=== PATIENT | male | born 1955 | race Caucasian/White ===

== ENCOUNTER 2021-01-07 16:43 | Observation (INO) | payer MEDICAID, SELFPAY ==
[2021-01-07] VITALS (7 sets, daily range): BP systolic 95–142; BP diastolic 61–95; PULSE 93–118; RESP 19–29; TEMP 38.1; O2SAT 88–96; BMI 33.0
--- NOTE | 2021-01-07 17:25 | XRR_ITS ---
PROCEDURE INFORMATION: Exam: XR Chest Exam date and time: 01/07/2021 5:33 PM Age: 65 years old Clinical indication: Cough and dyspnea; Additional info: Dyspnea/cough TECHNIQUE: Imaging protocol: XR of the chest Views: 1 view. COMPARISON: CR Chest 1 [place] [id number] 06/01/2017 5:04 PM FINDINGS: Lungs: Emphysematous changes of the lungs. No focal airspace consolidation apparent. Pleural spaces: Unremarkable. No pleural effusion. No pneumothorax. Heart/Mediastinum: Unremarkable. No cardiomegaly. Vasculature: Mild atherosclerosis of thoracic aorta. Bones/joints: Unremarkable. XR/XR chest 1V portable [id number] IMPRESSION: No convincing evidence of focal pneumonia in the lungs. Background emphysema noted.
[2021-01-07 18:09] LABS: Basophils % 0.4 %; Eosinophils # 0.4 10^3/uL (0.0-0.8); Eosinophils % 6.4 %; Hematocrit 37.6 % (42.0-52.0); Lymphocytes % 15.3 %; Mean Corpuscular HGB Conc 31.9 g/dL (30.0-36.0); Mean Corpuscular Hemoglobin 29.9 pg (28.0-34.0); Mean Corpuscular Volume 93.8 fL (80-94); Mean Platelet Volume 10.1 fL (7.4-10.4); Monocytes # 0.5 10^3/uL (0.2-0.9); Monocytes % 7.6 %; Nucleated Red Blood Cells % 0 %; Platelet Count 204 10^3/cmm (130-400); Red Blood Count 4.01 10^6/uL (4.1-5.3); Red Cell Distribution Width 12.6 % (12.1-15.1); White Blood Count 6.7 10^3/uL (4.0-10.0)
[2021-01-07 18:21] LABS: Add Urine Microscopic? NO
[2021-01-07 18:35] LABS: Lactic Sepsis W/Reflex 2.6 mmol/L (0.5-2.2)
[2021-01-07 18:35] LABS: Glucose Urine UA 4+ (Normal); Protein Urine Neg (Negative); Urine Appearance Clear (CLEAR); Urine Color Yellow (Yellow); pH Urine 5 (5-7)
[2021-01-07 18:36] LABS: Bilirubin Urine Neg (Negative); Blood Urine Neg (Negative); Ketones Urine Negative (Negative); Leukocyte Esterase Urine Negative (Negative); Nitrate Urine Negative (Negative); Urobilinogen Urine Norm (Negative)
[2021-01-07 18:37] LABS: Alanine Aminotransferase 21 U/L (0-41); Albumin Level 3.8 g/dL (3.5-5.2); Alkaline Phosphatase 72 IU/L (40-130); Anion Gap 12.8 (5-19); Aspartate Amino Transferase 21 U/L (0-40); Blood Urea Nitrogen 12 mg/dL (8-23); Calcium 8.5 mg/dL (8.5-10.5); Carbon Dioxide 31 mmol/L (22-29); Chloride 95 mmol/L (98-107); Globulin 2.9 g/dL (1.3-4.6); Glomerular Filtration Rate 113.9 mL/min (90-130); Glucose 265 mg/dL (65-115); Osmolality Calculated 289 mOsm/kg (285-295); Potassium 3.8 mmol/L (3.5-5.1); Sodium 135 mmol/L (136-145); Total Bilirubin 0.2 mg/dL (0.15-1.2); Total Protein 6.7 g/dL (6.6-8.7)
[2021-01-07 18:45] LABS: SARS Covid-2 Antigen Negative (Negative)
--- NOTE | 2021-01-07 18:47 | ECG_ITS ---
[facility] Test Date: 2021-01-07 Pat Name: Jason Asher Department: Room: Gender: Male Certified Income Tax Preparer: : 1955 Requested By: Messi Galindo Order Number: [id number] Gomez MD: Salomon Franklin M.D. Measurements Intervals [place] Rate: 101 P: 65 [place]: 160 QRS: -67 QRSD: 96 T: 59 QT: 327 QTc: 426 Interpretive Statements SINUS TACHYCARDIA PATTERN CONSISTENT WITH PULMONARY DISEASE LEFT ANTERIOR FASCICULAR BLOCK [QRS AXIS <= -45, QR IN I, RS IN II] Compared to ECG 06/01/2017 16:47:22 No significant changes Electronically Signed On 01-09-2021 19:03:34 HIMS CODER by Salomon Franklin M.D. [email or web address]
--- NOTE | 2021-01-07 19:18 | CTR_ITS ---
PROCEDURE INFORMATION: Exam: CT Angiography Chest With Contrast Exam date and time: 01/07/2021 8:00 PM Age: 65 years old Clinical indication: Shortness of breath; Patient HX: C/O SOB w tachycardia; Additional info: SOB, tachycardia TECHNIQUE: Imaging protocol: Computed tomographic angiography of the chest with contrast. 3D rendering (Not supervised by radiologist): MIP and/or 3D reconstructed images were created by the technologist. Radiation optimization: All CT scans at this facility use at least one of these dose optimization techniques: automated exposure control; mA and/or kV adjustment per patient size (includes targeted exams where dose is matched to clinical indication); or iterative reconstruction. Contrast material: VISI 320; Contrast volume: 85 ml; Contrast route: INTRAVENOUS (IV); COMPARISON: CR (CHEST, ) 01/07/2021 5:30 PM RADIATION DOSE METRICS: Total DLP (mGy-cm): 606.87 FINDINGS: Pulmonary arteries: Normal. No pulmonary emboli. Aorta: Unremarkable. No aortic aneurysm. No aortic dissection. Lungs: Severe emphysema. Small patchy ground-glass foci in the posterior right lower lobe are nonspecific. Small region of patchy irregular ground-glass attenuation in the right middle lobe is nonspecific. No focal endobronchial lesion identified. Pleural spaces: Unremarkable. No pneumothorax. No pleural effusion. Heart: Unremarkable. No cardiomegaly. No pericardial effusion. Mediastinal space: Circumferential wall thickening of the mid through distal thoracic esophagus. No soft tissue inflammation in the mediastinum. Lymph nodes: Unremarkable. No enlarged lymph nodes. Liver: Liver surface appears diffusely nodular. Speckled calcifications in the liver parenchyma noted in the anterior left lobe and also the right hepatic dome area of uncertain significance. Gallbladder and bile ducts: Cholecystectomy. Bones/joints: Unremarkable. No acute fracture. Soft tissues: Unremarkable. CT/CT angio chest PE protcl [id number] IMPRESSION: 1. Negative for pulmonary embolism. 2. Features of advanced emphysema. 3. Scattered small regions of patchy ground-glass attenuation in the lungs is nonspecific. May reflect mild pneumonitis changes. Radiation Dose CTDIVOL = (mGy): DLP = 606.87 (mGy-cm)
[2021-01-07] MEDS: dexamethasone 4 mg/mL INJ 10 MG IVP (19:22)
--- NOTE | 2021-01-07 19:28 | PC.NURSE ---
EKG taken and given to ED physician
[2021-01-07] MEDS: albuterol 8 gm MDI 4 PUFF INHALATION (19:46)
[2021-01-07 19:48] LABS: NT Pro B Type Natriuretic Pept 16 pg/mL (0-125)
[2021-01-07 19:51] LABS: ABG PCO2 54.3 mmHg (35-45); Arterial Blood Gas Hematocrit 39.1 % (42-52); Base Excess ABG 7.2 mmol/L (-2.0-2.0); Blood Gas Allen Test Pos; Blood Gas Sample Site Radial, left; Blood Gas Sample Type Arterial; HCO3 ABG 33.6 mmol/L (22-26); Oxygen Device ROOM AIR; PO2 ABG 50.1 mmHg (80.0-100.0)
[2021-01-07 19:53] LABS: Reflex Lactate Order REFLEX LACTIC ORDERD
[2021-01-07] MEDS: diphenhydrAMINE 50 mg/mL SDV 1mL IVP (20:16)
[2021-01-07] MEDS: hydrocortisone 100 mg/2 mL SDV IVP (20:18)
[2021-01-07] MEDS: iodixanol 320 mg/mL 100mL Btl IV (20:43)
[2021-01-07 20:45] LABS: Lactic Acid level (Lactate) 2.1 mmol/L (0.5-2.2)
[2021-01-07] MEDS: azithromycin 500 MG in sodium chloride 0.9% 250 ML 250 MG IV (22:51)
--- NOTE | 2021-01-07 22:59 | P.HP_ITS ---
Providers/Chief Complaint Primary Care Provider: Laurence Elizabeth Chief Complaint: COVID SYMPTOMS, LIVER ISSUES History of Present Illness Jason Asher JR is a 65 year old male who presented today with chief complaint of not feeling well. Patient is stating that he has chronic cough and diarrhea, lately he has been noticing worsening of his symptoms is getting more lethargic and tired. Because of these concerns he decided to come to the hospital for further evaluation. He also noticed temperature of 101 at home. His is n ot sick. He tries to limit his traveling and only goes out for grocery shopping. No chest pain, orthopnea, PND, abdominal pain, headache, neck pain, dysuria. Diagnostics in the ER revealed acute hypoxia he was saturating 85% on room air, at the time my evaluation he was doing fine on 2 L nasal cannula, ABG revealed hypoxia with chronic hypercapnia compensated, lactic 2.6 no active signs of seps is CTA rule out PE showed groundglass opacities however Covid antigen negative, will request PCR Medications/Allergies Home Medications Medication Instructions Recorded Confirmed Last Taken Type acetaminophen [Tylenol] 325 - 650 mg PO DAILY PRN 01/07/21 01/07/21 Unknown History albuterol sulfate 2 puff INHALATION Q6H PRN 01/07/21 01/07/21 Unknown History clonazepam [Klonopin] 1 mg PO DAILY@0800 01/07/21 01/07/21 01/07/21 History levothyroxine 100 mcg PO DAILY@0500 01/07/21 01/07/21 01/07/21 History loratadine [Claritin] 10 mg PO DAILY PRN 01/07/21 01/07/21 Unknown History metoprolol tartrate 50 mg PO BID@0500,1700 01/07/21 01/07/21 01/07/21 History ropinirole 2 mg PO DAILY@1800 01/07/21 01/07/21 01/06/21 History venlafaxine [Effexor] 75 mg PO DAILY@2000 01/07/21 01/07/21 01/06/21 History warfarin [Coumadin] 4 mg PO DAILY@1330 01/07/21 01/07/21 01/07/21 History Allergies Allergy/AdvReac Type Severity Reaction Status Date / Time Iodine and Iodide Containing Allergy TATYANA-Swell Verified 01/07/21 17:00 Produc Lip/Tongue/Throat shellfish derived Allergy ALGY-Swell Verified 01/07/21 17:00 Lip/Tongue/Throat PFSH Acute PFSH: Medical History (Updated 01/07/21 @ 23:03 by Shelby Henry MD) Deficient knowledge of leg surgery Former smoker Hepatitis C Hypertension Hypothyroidism Status post left heart catheterization Surgical History (Updated 01/07/21 @ 23:02 by Shelby Henry MD) History of colonoscopy Hx of cholecystectomy Family History (Updated 01/07/21 @ 23:02 by Shelby Henry MD) Other Family history non-contributory Vitals/I&O/Wt Last Vital Signs Temp 100.6 F H 01/07/21 16:54 Pulse 93 01/07/21 22:53 Resp 19 H 01/07/21 22:53 BP 107/69 01/07/21 22:53 Pulse Ox 96 01/07/21 22:53 Weight last 48 hrs Weight 92.986 kg Physical Exam Narrative: EXAM NARRATIVE: Middle-age male currently saturating well on 2 L nasal cannula no active chest pain, appears more than stated age Does not look fluid overloaded or dehydrated No acute respite distress bilateral breath sounds with rhonchi crackles at the bases S1, S2 no murmur appreciated, Distant heart sounds Abdomen soft nontender Lower extremity venous stasis dermatitis Appropriate mood and affect No neurological deficit No active joint swelling or signs of cellulitis Data : 01/07/21 18:00 01/07/21 18:00 A&P Assessment and plan (1) Sinus tachycardia: Patient endorsing chronic diarrhea, he does not take any Metformin We will give him normal saline maintenance fluid to see if that would help his sinus tachycardia no active chest pain, no signs of PE on CTA, he is not septic Status: Acute (2) Acute respiratory failure with hypoxia: Acute hypoxic respiratory failure Former smoker, PE ruled out, COVID-19 negative, will request PCR D-dimer, LDH and ferritin to be requested as well We will give him a azithromycin for bronchitis, x-ray showing emphysematous changes, not an active smoker DuoNeb every 4 as needed Would start him on Decadron Status: Acute (3) Diarrhea: Chronic diarrhea, no acute exacerbation Status: Acute Additional A&P Information Cardiac diet Full code DVT prophylaxis patient takes Coumadin 4 mg daily patient is stating that he had a provoked DVT episode after right leg fracture 2002, since then he has been on Coumadin, will check INR, kindly reevaluate I do believe he will not need long-term anticoagulation Attestations Medical Necessity Statement*: Anticipating discharge in less than 48 hours overnight monitoring because of new onset hypoxia and sinus tachycardia Time Spent in Patient Care: 40mins Coding Level of Care Code Acute Plug Wirer for Aura Vasquez Diagnoses Sinus tachycardia R00.0 Acute respiratory failure with hypoxia J96.01 Diarrhea R19.7
[2021-01-08] VITALS (10 sets, daily range): BP systolic 99–127; BP diastolic 59–77; PULSE 72–119; RESP 16–20; TEMP 36.4–36.9; O2SAT 90–96
[2021-01-08 00:06] LABS: INR 1.14 (0.8-1.2)
[2021-01-08] MEDS: sodium chloride 0.9% 1,000 ML 999 ML IV (01:27)
--- NOTE | 2021-01-08 01:30 | ED_ITS ---
HPI - SOB/Dyspnea General: Chief Complaint: Shortness of Breath/Dyspnea Stated Complaint: RUQ pain, SOB, fever Time Seen by Provider: 01/07/21 17:17 History of Present Illness: HPI Narrative: 65-year-old male presents with a fever at home, cough, and shortness of breath. He has noticed the symptoms the last 3 to 4 days. The fever just came on today. He has had trouble breathing, and feels like he cannot get stuff coughed up out of his chest. He does not use oxygen at home. Associated symptoms: Reports abdominal pain, fever(s), nausea and orthopnea; Deny chest pain, dizziness, palpitations or vomiting Review of Systems Const: Reports: fever(s) and chills Eyes: Denies: change in vision ENMT: Denies: odynophagia, swelling of lips/tongue or sinus pain Card: Reports: dyspnea on exertion and orthopnea; Denies: chest pain, palpitations or irregular heart rhythm Resp: Reports: dyspnea, productive cough, non-productive cough and wheezing GI: Reports: abdominal pain and nausea; Denies: vomiting : Denies: difficulty urinating or hematuria Musc: Denies: neck pain or joint warmth Skin/Breast: Denies: rash or erythema Neuro: Denies: headache(s), dizziness or vertigo Psych: Denies: anxiety PFSH ED PFSH: Medical History (Updated 01/07/21 @ 23:03 by Shelby Henry MD) Deficient knowledge of leg surgery Former smoker Hepatitis C Hypertension Hypothyroidism Status post left heart catheterization Surgical History (Updated 01/07/21 @ 23:02 by Shelby Henry MD) History of colonoscopy Hx of cholecystectomy Family History (Updated 01/07/21 @ 23:02 by Shelby Henry MD) Other Family history non-contributory Physical Exam Const: GENERAL APPEARANCE: cooperative and ill appearing ORIENTATION/CONSCIOUSNESS: Yes oriented to person, Yes oriented to place and Yes oriented to time HENMT: COMMON NORMALS: normocephalic and Normal external nose present HEAD & SCALP: normocephalic FACE & SINUS: normal facial exam NOSE: Normal external nose present and No nasal discharge present Eye: COMMON NORMALS: Equal, round and reactive pupils present, EOMs intact bilaterally and conjunctivae normal EYELID: eyelids normal CONJUNCTIVA: Yes conjunctivae normal PUPIL: Yes Equal, round and reactive pupils present Neck/C-Spine: GENERAL: No tracheal deviation Chest: COMMONS NORMALS: normal inspection of the chest CHEST: No tenderness Resp: COMMON NORMALS: clear to auscultation bilaterally EFFORT & INSPECTION: Yes tachypneic, No retractions, Yes uses accessory muscles and No tracheal deviation AUSCULTATION: clear to auscultation bilaterally, no rhonchi, no wheezes and diminished lung sounds Cardio: COMMON NORMALS: regular rate and regular rhythm RATE: regular rate RHYTHM: regular rhythm HEART SOUNDS: no murmurs PERIPHERAL PULSES: radial pulses present GI: INSPECTION: No abdominal distension AUSCULTATION: No Hyperactive bowel sounds present and No Hypoactive bowel sounds present PALPATION: No Guarding due to palpation present (GI) and No Rigid due to palpation PERCUSSION: no dullness to percussion and no tympanic to percussion Neuro: SENSORIUM/ORIENTATION: Yes oriented to person, Yes oriented to place and Yes oriented to time Psych: COMMON NORMALS: mental status grossly normal Skin: COMMON NORMALS: no rashes or lesions noted GENERAL SKIN EXAM: no rashes or lesions noted Course Vital Signs: Vital signs: Vital Signs Temperature 98.5 F 01/08/21 00:26 Pulse Rate 90 01/08/21 00:26 Respiratory Rate 18 01/08/21 00:26 Blood Pressure 99/59 01/08/21 00:26 Pulse Oximetry 95 01/08/21 00:26 MDM - SOB/Dyspnea MDM Narrative: Medical decision making narrative: 65-year-old gentleman who was hypoxic and febrile. His x-rays showed appeared to me the beginning of bilateral infiltrates. CTA of the chest shows groundglass infiltrates diffusely. His white blood cell count is 6.7. Hemoglobin 12. Lactic acid is 2.1. BNP is negative. His rapid Covid is negative. He will be tested by PCR given his x-ray findings. He has received dexamethasone and oxygen. He also received Zithromax. Lab Data: Labs: Lab Results 01/07/21 01/07/21 01/07/21 Range/Units 16:15 18:00 18:00 WBC 6.7 (4.0-10.0) 10^3/ uL RBC 4.01 L (4.1-5.3) 10^6/u L Hgb 12.0 (11.7-16.6) g/dL Hct 37.6 L (42.0-52.0) % MCV 93.8 (80-94) fL MCH 29.9 (28.0-34.0) pg MCHC 31.9 (30.0-36.0) g/dL RDW 12.6 (12.1-15.1) % Plt Count 204 (130-400) 10^3/c mm MPV 10.1 (7.4-10.4) fL Neut % (Auto) 70.0 % Lymph % (Auto) 15.3 % [place] % (Auto) 7.6 % Eos % (Auto) 6.4 % Baso % (Auto) 0.4 % Neut # (Auto) 4.70 (1.8-7.7) 10^3/u L Lymph # (Auto) 1.0 (0.8-4.8) 10^3/u L [place] # (Auto) 0.5 (0.2-0.9) 10^3/u L Eos # (Auto) 0.4 (0.0-0.8) 10^3/u L Baso # (Auto) 0.0 (0.0-0.1) 10^3/u L Nucleated RBC % (a uto) 0 % Nucleated RBCs # 0.0 /100WBC PT (12.1-14.9) SECO NDS INR (0.8-1.2) Specimen Type Sample Site ABG pH (7.35-7.45) ABG pCO2 (35-45) mmHg ABG pO2 (80.0-100.0) mmH g ABG HCO3 (22-26) mmol/L ABG Base Excess (-2.0-2.0) mmol/ L Luis Test Hematocrit (42-52) % O2 Delivery Device Public Welfare Director ID Sodium 135 L (136-145) mmol/L Potassium 3.8 (3.5-5.1) mmol/L Chloride 95 L (98-107) mmol/L Carbon Dioxide 31 H (22-29) mmol/L Anion Gap 12.8 (5-19) BUN 12 (8-23) mg/dL Creatinine 0.7 (0.7-1.2) mg/dL GFR Calculation 113.9 (90-130) mL/min Glucose 265 H (65-115) mg/dL Calculated Osmolal ity 289 (285-295) mOsm/k g Lactic Acid (0.5-2.2) mmol/L Lactic Acid (Sepsi s) (0.5-2.2) mmol/L Calcium 8.5 (8.5-10.5) mg/dL Total Bilirubin 0.2 (0.15-1.2) mg/dL AST 21 (0-40) U/L ALT 21 (0-41) U/L Alkaline Phosphata se 72 (40-130) IU/L NT-Pro-B Natriuret Pep (0-125) pg/mL Total Protein 6.7 (6.6-8.7) g/dL Albumin 3.8 (3.5-5.2) g/dL Globulin 2.9 (1.3-4.6) g/dL Procalcitonin 0.10 (0-0.5) ng/mL Urine Color (Yellow) Urine Appearance (CLEAR) Urine pH (5-7) Ur Specific Gravit y (1.005-1.030) Urine Protein (Negative) Urine Glucose (UA) (Normal) Urine Ketones (Negative) Urine Blood (Negative) Urine Nitrate (Negative) Urine Bilirubin (Negative) Urine Urobilinogen (Negative) mg/dL Ur Leukocyte Kylah ase (Negative) SARS-CoV-2 Ag (Rap id) (Negative) 01/07/21 01/07/21 01/07/21 Range/Units 18:00 18:00 18:00 WBC (4.0-10.0) 10^3/ uL RBC (4.1-5.3) 10^6/u L Hgb (11.7-16.6) g/dL Hct (42.0-52.0) % MCV (80-94) fL MCH (28.0-34.0) pg MCHC (30.0-36.0) g/dL RDW (12.1-15.1) % Plt Count (130-400) 10^3/c mm MPV (7.4-10.4) fL Neut % (Auto) % Lymph % (Auto) % [place] % (Auto) % Eos % (Auto) % Baso % (Auto) % Neut # (Auto) (1.8-7.7) 10^3/u L Lymph # (Auto) (0.8-4.8) 10^3/u L [place] # (Auto) (0.2-0.9) 10^3/u L Eos # (Auto) (0.0-0.8) 10^3/u L Baso # (Auto) (0.0-0.1) 10^3/u L Nucleated RBC % (a uto) % Nucleated RBCs # /100WBC PT 15.00 H (12.1-14.9) SECO NDS INR 1.14 (0.8-1.2) Specimen Type Sample Site ABG pH (7.35-7.45) ABG pCO2 (35-45) mmHg ABG pO2 (80.0-100.0) mmH g ABG HCO3 (22-26) mmol/L ABG Base Excess (-2.0-2.0) mmol/ L Luis Test Hematocrit (42-52) % O2 Delivery Device Public Welfare Director ID Sodium (136-145) mmol/L Potassium (3.5-5.1) mmol/L Chloride (98-107) mmol/L Carbon Dioxide (22-29) mmol/L Anion Gap (5-19) BUN (8-23) mg/dL Creatinine (0.7-1.2) mg/dL GFR Calculation (90-130) mL/min Glucose (65-115) mg/dL Calculated Osmolal ity (285-295) mOsm/k g Lactic Acid 2.6 H (0.5-2.2) mmol/L Lactic Acid (Sepsi s) (0.5-2.2) mmol/L Calcium (8.5-10.5) mg/dL Total Bilirubin (0.15-1.2) mg/dL AST (0-40) U/L ALT (0-41) U/L Alkaline Phosphata se (40-130) IU/L NT-Pro-B Natriuret Pep 16 (0-125) pg/mL Total Protein (6.6-8.7) g/dL Albumin (3.5-5.2) g/dL Globulin (1.3-4.6) g/dL Procalcitonin (0-0.5) ng/mL Urine Color (Yellow) Urine Appearance (CLEAR) Urine pH (5-7) Ur Specific Gravit y (1.005-1.030) Urine Protein (Negative) Urine Glucose (UA) (Normal) Urine Ketones (Negative) Urine Blood (Negative) Urine Nitrate (Negative) Urine Bilirubin (Negative) Urine Urobilinogen (Negative) mg/dL Ur Leukocyte Kylah ase (Negative) SARS-CoV-2 Ag (Rap id) (Negative) 01/07/21 01/07/21 01/07/21 Range/Units 18:13 18:13 19:35 WBC (4.0-10.0) 10^3/ uL RBC (4.1-5.3) 10^6/u L Hgb (11.7-16.6) g/dL Hct (42.0-52.0) % MCV (80-94) fL MCH (28.0-34.0) pg MCHC (30.0-36.0) g/dL RDW (12.1-15.1) % Plt Count (130-400) 10^3/c mm MPV (7.4-10.4) fL Neut % (Auto) % Lymph % (Auto) % [place] % (Auto) % Eos % (Auto) % Baso % (Auto) % Neut # (Auto) (1.8-7.7) 10^3/u L Lymph # (Auto) (0.8-4.8) 10^3/u L [place] # (Auto) (0.2-0.9) 10^3/u L Eos # (Auto) (0.0-0.8) 10^3/u L Baso # (Auto) (0.0-0.1) 10^3/u L Nucleated RBC % (a uto) % Nucleated RBCs # /100WBC PT (12.1-14.9) SECO NDS INR (0.8-1.2) Specimen Type Arterial Sample Site Radial, left ABG pH 7.40 (7.35-7.45) ABG pCO2 54.3 H (35-45) mmHg ABG pO2 50.1 L (80.0-100.0) mmH g ABG HCO3 33.6 H (22-26) mmol/L ABG Base Excess 7.2 H (-2.0-2.0) mmol/ L Luis Test Pos Hematocrit 39.1 L (42-52) % O2 Delivery Device Room air Public Welfare Director ID [email or web address] Sodium (136-145) mmol/L Potassium (3.5-5.1) mmol/L Chloride (98-107) mmol/L Carbon Dioxide (22-29) mmol/L Anion Gap (5-19) BUN (8-23) mg/dL Creatinine (0.7-1.2) mg/dL GFR Calculation (90-130) mL/min Glucose (65-115) mg/dL Calculated Osmolal ity (285-295) mOsm/k g Lactic Acid (0.5-2.2) mmol/L Lactic Acid (Sepsi s) (0.5-2.2) mmol/L Calcium (8.5-10.5) mg/dL Total Bilirubin (0.15-1.2) mg/dL AST (0-40) U/L ALT (0-41) U/L Alkaline Phosphata se (40-130) IU/L NT-Pro-B Natriuret Pep (0-125) pg/mL Total Protein (6.6-8.7) g/dL Albumin (3.5-5.2) g/dL Globulin (1.3-4.6) g/dL Procalcitonin (0-0.5) ng/mL Urine Color Yellow (Yellow) Urine Appearance Clear (CLEAR) Urine pH 5 (5-7) Ur Specific Gravit y 1.020 (1.005-1.030) Urine Protein Neg (Negative) Urine Glucose (UA) 4+ H (Normal) Urine Ketones Negative (Negative) Urine Blood Neg (Negative) Urine Nitrate Negative (Negative) Urine Bilirubin Neg (Negative) Urine Urobilinogen Norm (Negative) mg/dL Ur Leukocyte Kylah ase Negative (Negative) SARS-CoV-2 Ag (Rap id) Negative (Negative) 01/07/21 Range/Units 20:23 WBC (4.0-10.0) 10^3/ uL RBC (4.1-5.3) 10^6/u L Hgb (11.7-16.6) g/dL Hct (42.0-52.0) % MCV (80-94) fL MCH (28.0-34.0) pg MCHC (30.0-36.0) g/dL RDW (12.1-15.1) % Plt Count (130-400) 10^3/c mm MPV (7.4-10.4) fL Neut % (Auto) % Lymph % (Auto) % [place] % (Auto) % Eos % (Auto) % Baso % (Auto) % Neut # (Auto) (1.8-7.7) 10^3/u L Lymph # (Auto) (0.8-4.8) 10^3/u L [place] # (Auto) (0.2-0.9) 10^3/u L Eos # (Auto) (0.0-0.8) 10^3/u L Baso # (Auto) (0.0-0.1) 10^3/u L Nucleated RBC % (a uto) % Nucleated RBCs # /100WBC PT (12.1-14.9) SECO NDS INR (0.8-1.2) Specimen Type Sample Site ABG pH (7.35-7.45) ABG pCO2 (35-45) mmHg ABG pO2 (80.0-100.0) mmH g ABG HCO3 (22-26) mmol/L ABG Base Excess (-2.0-2.0) mmol/ L Luis Test Hematocrit (42-52) % O2 Delivery Device Public Welfare Director ID Sodium (136-145) mmol/L Potassium (3.5-5.1) mmol/L Chloride (98-107) mmol/L Carbon Dioxide (22-29) mmol/L Anion Gap (5-19) BUN (8-23) mg/dL Creatinine (0.7-1.2) mg/dL GFR Calculation (90-130) mL/min Glucose (65-115) mg/dL Calculated Osmolal ity (285-295) mOsm/k g Lactic Acid (0.5-2.2) mmol/L Lactic Acid (Sepsi s) 2.1 (0.5-2.2) mmol/L Calcium (8.5-10.5) mg/dL Total Bilirubin (0.15-1.2) mg/dL AST (0-40) U/L ALT (0-41) U/L Alkaline Phosphata se (40-130) IU/L NT-Pro-B Natriuret Pep (0-125) pg/mL Total Protein (6.6-8.7) g/dL Albumin (3.5-5.2) g/dL Globulin (1.3-4.6) g/dL Procalcitonin (0-0.5) ng/mL Urine Color (Yellow) Urine Appearance (CLEAR) Urine pH (5-7) Ur Specific Gravit y (1.005-1.030) Urine Protein (Negative) Urine Glucose (UA) (Normal) Urine Ketones (Negative) Urine Blood (Negative) Urine Nitrate (Negative) Urine Bilirubin (Negative) Urine Urobilinogen (Negative) mg/dL Ur Leukocyte Kylah ase (Negative) SARS-CoV-2 Ag (Rap id) (Negative) Discharge Plan Discharge Patient Disposition: Admitted As Inpatient Admit Provider: Shelby Henry Coding Level of Care Code ED Financial Aid Counselor for Aura Vasquez
[2021-01-08] MEDS: levothyroxine 100 mcg Tablet PO (04:57)
[2021-01-08] MEDS: metoprolol tartrate 50 mg Tablet PO (04:57)
[2021-01-08 06:00] LABS: Anion Gap 12.7 (5-19); Blood Urea Nitrogen 13 mg/dL (8-23); C Reactive Protein 90.7 mg/L (0.0-4.9); Calcium 8.7 mg/dL (8.5-10.5); Carbon Dioxide 27 mmol/L (22-29); Chloride 97 mmol/L (98-107); Glomerular Filtration Rate 113.9 mL/min (90-130); Glucose 363 mg/dL (65-115); Osmolality Calculated 291 mOsm/kg (285-295); Potassium 3.7 mmol/L (3.5-5.1); Sodium 133 mmol/L (136-145)
[2021-01-08 06:20] LABS: Lactate (Lactic Acid level) 3.2 mmol/L (0.5-2.2)
[2021-01-08 06:40] LABS: Glucose Point of Care 382 mg/dL (70-110)
[2021-01-08 07:25] LABS: Estmated Average Glucose 203; Hemoglobin A1C 8.7 % (4.0-6.0)
[2021-01-08 08:12] LABS: Ferritin 360 ng/mL (30-400)
[2021-01-08 08:46] LABS: INR 1.12 (0.8-1.2)
[2021-01-08] MEDS: cefTRIAXone 1,000 MG in sodium chloride 0.9% (plus) 50 ML 100 MG IV (09:22)
[2021-01-08] MEDS: dexamethasone 4 mg Tablet 6 MG PO (09:22)
[2021-01-08] MEDS: azithromycin 250 mg Tablet 500 MG PO (10:38)
[2021-01-08 11:07] LABS: Glucose Point of Care 388 mg/dL (70-110)
[2021-01-08] MEDS: warfarin 2 mg Tablet 4 MG PO (12:23)
--- NOTE | 2021-01-08 13:23 | PM.PN ---
Subjective Subjective: Interval history: Pending Covid PCR, T-max 100.6 Fahrenheit over the last 24 hours, no new complaints Medications: Reviewed: Yes Vitals/I&O/Wt Last Vital Signs Temp 97.9 F 01/08/21 11:32 Pulse 88 01/08/21 11:32 Resp 18 01/08/21 11:32 BP 112/72 01/08/21 11:32 Pulse Ox 92 01/08/21 11:32 01/07/21 01/08/21 01/08/21 22:59 06:59 14:59 Intake Total 1550 / 1550 290 / 290 Output Total 700 / 700 Balance 1550 / 1550 -410 / -410 Weight last 48 hrs Weight 92.986 kg Physical Exam Narrative: EXAM NARRATIVE: GEN: Awake, alert and oriented, no acute distress CVS: S1S2 N RS: CTA B/L except crackles over RUL Abd: Soft, nt/nd , bs+ DIRECTOR [employer] SALES: no focal neuro deficits Data : 01/07/21 18:00 01/08/21 05:16 Micro: Microbiology 01/07/21 09:46 Blood Culture - Preliminary Blood SPECIMEN COLLECTED 01/07/21 09:45 Blood Culture - Preliminary Blood SPECIMEN COLLECTED 01/07/21 18:13 Legionella Urinary Antigen - Final Urine,Voided 01/07/21 18:13 Bacterial Antigens - Final Urine,Voided A&P Assessment and plan (1) Sinus tachycardia: Patient endorsing chronic diarrhea, he does not take any Metformin For now resolved. Next check C. difficile PCR Status: Acute (2) Acute respiratory failure with hypoxia: Acute hypoxic respiratory failure Former smoker, PE ruled out, COVID-19 negative, will request PCR D-dimer, LDH and ferritin to be requested as well We will give him a azithromycin for bronchitis, x-ray showing emphysematous changes, not an active smoker DuoNeb every 4 as needed Would start him on Decadron 6 mg p.o. daily until results of Covid PCR come back at which point remdesivir may need to be added Status: Acute (3) Diarrhea: Chronic diarrhea, no acute exacerbation, check C. difficile Status: Acute (4) Fever: Status: Acute Additional A&P Information Cardiac diet Full code DVT prophylaxis patient takes Coumadin 4 mg daily patient is stating that he had a provoked DVT episode after right leg fracture 2002, obtain records from primary care provider to a ascertain indication for lifelong anticoagulation. Attestations Medical Necessity Statement*: Overnight with T-max of 100.6, undergoing evaluation, pending COVID-19 PCR Coding Level of Care Code Acute Mending Carrier for Chg Fwd Diagnoses Sinus tachycardia R00.0 Acute respiratory failure with hypoxia J96.01 Diarrhea R19.7 Fever R50.9
[2021-01-08 14:53] LABS: Influenza A by IFA Negative (Negative); Influenza B by IFA Negative (Negative)
--- NOTE | 2021-01-08 16:09 | PC.NURSE ---
Addendum entered by Effie Mays RN 01/08/21 16:12: waiting on Dr. Smallwood to sign prescription for pt to discharge Original Note: pt verbalizes understanding of discharge instructions, home medications, and follow up appointments. pt states he has a doctor appointment tomorrow and we discussed remaining in quarantine until send out COVID test results are back.
[2021-01-09 13:38] LABS: Coronavirus Test Green County Not Detected
== END 2021-01-08 16:49 | disposition home or self-care (01) ==
LOC: ER 18:12 → MEDSURG 01-08 00:34
PROVIDERS: Family Medicine; Admitting Provider Internal Medicine; Emergency Provider Emergency Medicine; PCP Nurse Practitioner Family; Visit Provider Student in an Organized Health Care Education/Training Program
DX: R00.0 Tachycardia, unspecified (principal); J96.01 Acute respiratory failure with hypoxia; R19.7 Diarrhea, unspecified; R50.9 Fever, unspecified; Z79.01 Long term (current) use of anticoagulants; Z87.891 Personal history of nicotine dependence; Z86.19 Personal history of other infectious and parasitic diseases; I10 Essential (primary) hypertension; E03.9 Hypothyroidism, unspecified
CPT/HCPCS: 36415; 36416; 36600; 71045; 71275; 80048; 80053; 81003; 82728; 82803; 82962; 83036; 83605; 83880; 84145; 85025; 85378; 85610; 86140; 86403; 87040; 87426; 87449; 87635; 87804; 93005; 94640; 96361; 96365; 96366; 96367; 96372; 96375; 99285; G0378; J0456; J0696; J1100; J1200; J1720; J1815; J3535; J7030; J7050; J8540; Q0144; Q9967

== ENCOUNTER → 2021-03-06 16:04 | Outpatient (BNVA) | payer MEDICAID, SELFPAY | PROVIDERS: PCP Family Medicine; Visit Provider Family Medicine | DX: B19.20 Unspecified viral hepatitis C without hepatic coma (principal); E03.9 Hypothyroidism, unspecified; I10 Essential (primary) hypertension; I82.509 Chronic embolism and thrombosis of unspecified deep veins of unspecified lower extremity | CPT/HCPCS: 80053; 80061; 83721; 84443; 85025; 85610; 87522; 87902 ==

== ENCOUNTER → 2021-03-27 08:46 | Outpatient (BNVA) | payer MEDICAID, SELFPAY | PROVIDERS: PCP Family Medicine; Visit Provider Family Medicine | DX: N23 Unspecified renal colic (principal); M54.5 Low back pain; G89.29 Other chronic pain | CPT/HCPCS: 81000 ==

== ENCOUNTER 2021-04-04 12:24 | Outpatient (CLI) | payer MEDICAID, SELFPAY ==
--- NOTE | 2021-04-04 13:45 | MR_ITS ---
WS: [id number] MRI LUMBAR SPINE NONCONTRAST HISTORY: M54.5 - Low back pain COMPARISON: CT 09/19/2007 TECHNIQUE: Sagittal and axial multisequence imaging is submitted. 7 cervical and 12 thoracic vertebral bodies. 5 nonrib-bearing lumbar vertebral bodies. S1 is lumbariz ed. Normal lumbar alignment. There is very slight anterior wedging of L1 which is stable since 2006. No m arrow edema or fracture. Very mild disc desiccation. Conus terminates normally at L1. L1-L2: Normal. L2-L3: Mild annular disc bulging with ligamentum flavum hypertrophy. No stenosis. L3-L4: Mild annular disc bulge with mild ligamentum flavum hypertrophy. No stenosis. L4-L5: Mild annular disc bulging with moderate mild encroachment upon the L5 nerve roots in the later al recesses. No displacement of the nerve roots. No significant stenosis. L5-S1: Mild annular disc bulge and ligamentum flavum and facet arthritis. Very mild encroachment into the lateral recesses. No significant stenosis. S1-S2: Small rudimentary disc. No stenosis. Paravertebral soft tissues are negative. MR/MR lumbar spine wo con* [id number] IMPRESSION: 1. No high-grade central or foraminal stenosis or disc protrusions. 2. Mild disc encroachment upon the L5 nerve roots in the lateral recesses at L 4-5 and on the S1 nerve roots at L5-S1. 3. S1 is lumbarized.
== END 2021-04-04 12:25 | disposition home or self-care (01) ==
PROVIDERS: PCP Family Medicine; Visit Provider Family Medicine
DX: M54.5 Low back pain (principal); G89.29 Other chronic pain; Q76.49 Other congenital malformations of spine, not associated with scoliosis
CPT/HCPCS: 72148

== ENCOUNTER → 2021-04-20 10:18 | Outpatient (BNVA) | payer MEDICAID, SELFPAY | PROVIDERS: PCP Family Medicine; Referring Provider Family Medicine; Visit Provider Anesthesiology | DX: G89.29 Other chronic pain (principal); M54.5 Low back pain; M62.838 Other muscle spasm; F12.90 Cannabis use, unspecified, uncomplicated; Z79.891 Long term (current) use of opiate analgesic; Z87.891 Personal history of nicotine dependence | CPT/HCPCS: 99204 ==

== ENCOUNTER 2021-05-09 10:59 | Outpatient (CLI) | payer MEDICAID, SELFPAY ==
--- NOTE | 2021-05-09 11:06 | CT_ITS ---
WS: [id number] CT CHEST, ABDOMEN AND PELVIS NONCONTRAST. HISTORY: R07.9 - Chest pain, unspecified TECHNIQUE: Contiguous 5 mm axial imaging performed through the chest, abdomen and pelvis without IV c ontrast, oral contrast has not been provided. Coronal and sagittal reformats chest. Coronal and sagit dirk reformats through the abdomen and pelvis. All CT scans at [facility] use at least one of these dose optimization techniques: automated exposure control; mA and/or kV adjustment per patie nt size (includes targeted exams where dose is matched to clinical indication); or iterative reconstr uction. CONTRAST: None DLP: 2450.23 mGycm COMPARISON: 01/07/2021, 09/19/[address]: Mild pulmonary hyperinflation from emphysema. There is mild thickening of the distal airway s in the upper and lower lung zaidi but much improved since the prior study. Linear 7 mm opacificati on LEFT lower lobe corresponds to a scar on the lateral projection. More focal subtle interstitial th ickening in the periphery of the LEFT lower lobe. No effusions or mass. Mild atherosclerosis aorta. N ormal size pulmonary artery. Coronary artery calcifications. Air-fluid level midesophagus. No mediast inal or hilar adenopathy. Abdomen CT: Again noted are calcifications along the superior dome of the liver which have been prese nt since 2006 but there has also been progression of these calcifications. Surface of liver is nodula r. Cannot further evaluate liver pathology on unenhanced study. Liver is enlarged. Normal size spleen with granulomata. Prior cholecystectomy. Pancreas and adrenal glands are negative. Mild bilateral pe rinephric stranding. No renal obstruction. Calcification within the aorta. No adenopathy or ascites. No GI tract obstruction. The appendix is normal. No diverticulitis. Pelvic CT: Artifact through the pelvis secondary to a RIGHT hip arthroplasty. No free fluid or adenop athy is evident. No destructive bone lesions identified. CT/CT chest abd pel wo con IMPRESSION: 1. Enlarged liver with nodular surface and no bile duct dilatation. Scattered calcifications along the surface of the liver have been present since 2006 but progressed. Cannot further evaluate on this unenhanced study. 2. Air-fluid level in the esophagus from reflux disease most likely. 3. Prior cholecystectomy. 4. No adenopathy or ascites. 5. Moderate improvement in the lungs since the prior study. Very minimal resid ual tree-in-bud airspace disease in the linear nodule likely atelectasis or sca r in the LEFT lower lobe. 6. Chronic emphysema. 7. No adenopathy.
== END 2021-05-09 11:00 | disposition home or self-care (01) ==
LOC: RADWPI 11:03
PROVIDERS: PCP Family Medicine; Visit Provider Anesthesiology
DX: R10.9 Unspecified abdominal pain (principal); R07.9 Chest pain, unspecified; R16.0 Hepatomegaly, not elsewhere classified; J43.9 Emphysema, unspecified; Z90.49 Acquired absence of other specified parts of digestive tract
CPT/HCPCS: 71250; 74176

== ENCOUNTER → 2021-05-17 11:08 | Outpatient (BNVA) | payer MEDICAID, SELFPAY | PROVIDERS: PCP Family Medicine; Visit Provider Anesthesiology | DX: G89.29 Other chronic pain (principal); M54.5 Low back pain; Z79.891 Long term (current) use of opiate analgesic; Z87.891 Personal history of nicotine dependence | CPT/HCPCS: 99213 ==

== ENCOUNTER → 2021-06-14 10:21 | Outpatient (BNVA) | payer MEDICAID, SELFPAY | PROVIDERS: PCP Family Medicine; Visit Provider Anesthesiology | DX: G89.29 Other chronic pain (principal); M54.5 Low back pain; Z79.891 Long term (current) use of opiate analgesic | CPT/HCPCS: 99213 ==

== ENCOUNTER → 2021-07-24 17:00 | Outpatient (BNVA) | payer MEDICAID, SELFPAY | PROVIDERS: PCP Family Medicine; Visit Provider Family Medicine | DX: E03.9 Hypothyroidism, unspecified (principal); I10 Essential (primary) hypertension; F41.9 Anxiety disorder, unspecified; I82.509 Chronic embolism and thrombosis of unspecified deep veins of unspecified lower extremity; K52.9 Noninfective gastroenteritis and colitis, unspecified; G47.00 Insomnia, unspecified | CPT/HCPCS: 85025; 85610 ==

== ENCOUNTER 2024-02-05 17:28 | Emergency (ER) | payer MEDICARE, MEDICAID, SELFPAY ==
[2024-02-05 17:31] VITALS: BP 131/72; PULSE 89; RESP 18; TEMP 36.7; O2SAT 96
--- NOTE | 2024-02-05 17:45 | ED_ITS ---
HPI - Weakness 2 General: Chief complaint: Weakness Stated complaint: Weakness Time Seen by Provider: 02/05/24 17:32 Source: patient and EMS Mode of arrival: EMS Limitations: no limitations History of Present Illness: Patient is a 68-year-old male who presents to ED today via EMS for evaluation of weakness. Patient states he lives alone. He has noticed that he has slowly become progressively more and more weak over the past few months. Patient states he called an ambulance today because I do not want to get so bad that I cannot take care of myself anymore . Patient states over the past several days he has been ambulatory in his home and has been able to feed himself, bathe himself, dress himself. He states he has a complaint that his left arm does not work like I wanted to . He states this has been going on about 8 months or so. He states sometimes it trembles. Patient states he has seen his primary care provider for this. He has a complaint of progressive worsening eyesight and states he needs to follow-up with an eye doctor. He does not have any acute complaints today. He arrives with stable vital signs. On initial examination he is lethargic/drifting off to sleep however after speaking to him he becomes much more alert and answers all questions appropriately. He is on multiple sedating medications including oxycodone for chronic back pain, xanax, tramadol, and admittedly smokes weed daily. MD Complaint: generalized weakness Onset (ago): month(s) Duration: progressively worsening Location: generalized Migration: none Severity: mild Relieving factors: none Exacerbating factors: none Associated symptoms: Denies chest pain, chills, confusion, dysuria, fever(s), headache(s), nausea, syncope or vomiting Review of Systems 2 Const: Reports: other (generalized weakness); Denies: fever(s), chills, body aches, fatigue or malaise Eyes: Denies: change in vision or blurry vision Card: Denies: chest pain, palpitations, irregular heart rhythm, lightheadedness, syncope or dyspnea on exertion Resp: Denies: dyspnea, productive cough or pain on inspiration GI: Denies: abdominal pain, nausea, vomiting, heartburn or diarrhea : Denies: difficulty urinating or dysuria Musc: Reports: other (states his left arm doesn't work like I want it to sometimes ); Denies: neck pain, back pain, extremity pain, extremity swelling or joint pain Skin/Breast: Denies: rash Neuro: Denies: headache(s), difficulty walking, dizziness, vertigo, confusion, behavioral changes, Slurred speech present, difficulty communicating thoughts or seizure-like activity Psych: Reports: anxiety PFSH ED 2 PFSH: Medical History Encounter for long-term opiate analgesic use Opioid contract exists Spasm of abdominal muscles Former smoker Hepatitis C Deficient knowledge of leg surgery Status post left heart catheterization Hypothyroidism Hypertension Surgical History History of colonoscopy Hx of cholecystectomy Family History Other Family history non-contributory Social History Second hand smoke exposure: No Alcohol intake: former Substance/Drug Use: never Physical Exam 2 Const: COMMON NORMALS: no acute distress, average body habitus, patient oriented x3, no limitations, healthy appearing, alert and well nourished G ENERAL APPEARANCE: cooperative ORIENTATION/CONSCIOUSNESS: Yes awake, Yes oriented to person, Yes oriented to place and Yes oriented to time OTHER: drowsy upon arrival but after speaking to him he is much more alert and answering questions appropriately; he smells like marijuana; lower pant legs/socks are filthy dirty HENMT: COMMON NORMALS: normocephalic and atraumatic HEAD & SCALP: normal to inspection, normocephalic and atraumatic Eye: GENERAL EYE: appearance normal, both eyes and all related structures and normal light reflex DIRECT OPHTHALMOSCOPY: Yes normal light reflex Neck/C-Spine: COMMON NORMALS: full ROM and no lymphadenopathy GENERAL: Yes normal visual inspection Resp: COMMON NORMALS: normal respiratory effort and clear to auscultation bilaterally AUSCULTATION: clear to auscultation bilaterally Cardio: COMMON NORMALS: regular rate and regular rhythm RATE: regular rate RHYTHM: regular rhythm GI: COMMON NORMALS: Normal to inspection, nondistended, normoactive bowel sounds present, Soft to palpation and non-tender PALPATION: Yes Soft to palpation : COMMON NORMALS: Yes no CVA tenderness BLADDER/KIDNEY EXAM: Yes no CVA tenderness Back/Pelvis: COMMON NORMALS: no CVA tenderness and thoracic and lumbar spine normal to inspection OTHER: reports chronic back pain-at baseline Extremity: COMMON NORMALS: normal to inspection GENERAL: Yes normal exam except as noted Neuro: HILARIA COMA SCALE: document GCS findings Nelson coma scale eye opening: Spontaneous Nelson coma scale verbal response: Orientated Nelson coma scale motor response: Obey commands Nelson coma scale total score: 15 COMMON NORMALS: patient oriented x3, CN's II-XII intact bilaterally, moves all extremities, no focal motor deficits and no sensory deficits noted S ENSORIUM/ORIENTATION: Yes alert, Yes oriented to person, Yes oriented to place and Yes oriented to time SPEECH: speech normal MOTOR EXAM: 5/5 motor strength present throughout OTHER: NIHSS-0 appears to have some mild contracture of L hand/digits that he states has been present for several months Skin: COMMON NORMALS: no rashes or lesions noted GENERAL SKIN EXAM: no rashes or lesions noted Course 2 Vital Signs: Vital signs: Vital Signs Temperature 98.1 F 02/05/24 17:31 Pulse Rate 77 02/05/24 18:30 Respiratory Rate 18 02/05/24 17:31 Blood Pressure 118/61 02/05/24 18:30 Pulse Oximetry 98 02/05/24 18:30 Oxygen Delivery Me thod Room Air 02/05/24 17:31 MDM - Weakness Medical Decision Making Patient is a 68-year-old male who presents to ED today with a complaint of generalized weakness that has been slowly progressively worsening over the past 2 to 3 months. Patient states over the last several days he has still been able to care for himself at home including ambulating, bathing himself, cooking for himself, dressing himself. He has no acute complaints today. He arrives with stable vital signs. He was initially drowsy upon exam however after speaking to him he perks up and is alert and oriented. Patient is on multiple medications that could attribute to his weakness including oxycodone, tramadol, xanax, and daily marijuana use. His workup here is essentially benign. He does have a white count of 17.27 with no evidence for infection anywhere. His CXR is normal. UA is clear. He does take warfarin. INR is therapeutic. At this point I recommend patient follow-up with his primary care provider for further evaluation and treatment which could include in-home physical therapy. Return ED precautions given. Medical Records I reviewed the patient's medical records. Lab Data I reviewed the patient's lab results. 02/05/24 17:00 02/05/24 17:00 Radiology Impressions Chest X-Ray 02/05/24 17:45 IMPRESSION: No acute findings. Laboratory Results WBC 17.27 10^3/uL (3.29-11.43) H 02/05/24 17:00 RBC 4.61 10^6/uL (3.85-5.65) 02/05/24 17:00 Hgb 14.10 g/dL (11.27-16.99) 02/05/24 17:00 Hct 42.0 % (37-53) 02/05/24 17:00 MCV 91.1 fl (82-101) 02/05/24 17:00 MCH 30.6 pg (27-33) 02/05/24 17:00 MCHC 33.6 g/dL (30-55) 02/05/24 17:00 RDW 13.2 % (12.1-15.1) 02/05/24 17:00 Plt Count 379 10^3/cmm (157-399) 02/05/24 17:00 MPV 10.4 fL (7.4-10.4) 02/05/24 17:00 Neut % (Auto) 77.6 % 02/05/24 17:00 Lymph % (Auto) 10.5 % 02/05/24 17:00 Prentiss % (Auto) 6.8 % 02/05/24 17:00 Eos % (Auto) 4.5 % 02/05/24 17:00 Baso % (Auto) 0.3 % 02/05/24 17:00 Neut # (Auto) 13.38 10^3/uL (1.8-7.7) H 02/05/24 17:00 Lymph # (Auto) 1.8 10^3/uL (0.8-4.8) 02/05/24 17:00 Prentiss # (Auto) 1.2 10^3/uL (0.2-0.9) H 02/05/24 17:00 Eos # (Auto) 0.8 10^3/uL (0.0-0.8) 02/05/24 17:00 Baso # (Auto) 0.1 10^3/uL (0.0-0.1) 02/05/24 17:00 Nucleated RBC % (auto) 0 % 02/05/24 17:00 Nucleated RBCs # 0.0 /100WBC 02/05/24 17:00 PT 20.90 SECONDS (12.1-14.9) H 02/05/24 17:00 INR 1.73 (0.8-1.2) H 02/05/24 17:00 Sodium 138 mmol/L (136-145) 02/05/24 17:00 Potassium 4.3 mmol/L (3.5-5.1) 02/05/24 17:00 Chloride 98 mmol/L (98-107) 02/05/24 17:00 Carbon Dioxide 28 mmol/L (22-29) 02/05/24 17:00 Anion Gap 16.3 (5-19) 02/05/24 17:00 BUN 27 mg/dL (8-23) H 02/05/24 17:00 Creatinine 1.0 mg/dL (0.7-1.2) 02/05/24 17:00 GFR Calculation 74.8 mL/min (90-130) L 02/05/24 17:00 Glucose 126 mg/dL (65-115) H 02/05/24 17:00 Calculated Osmolality 293 mOsm/kg (285-295) 02/05/24 17:00 Calcium 9.4 mg/dL (8.5-10.5) 02/05/24 17:00 Total Bilirubin 0.4 mg/dL (0.15-1.2) 02/05/24 17:00 AST 19 U/L (0-40) 02/05/24 17:00 ALT 14 U/L (0-41) 02/05/24 17:00 Alkaline Phosphatase 75 U/L (40-130) 02/05/24 17:00 Total Protein 7.4 g/dL (6.6-8.7) 02/05/24 17:00 Albumin 4.4 g/dL (3.5-5.2) 02/05/24 17:00 Globulin 3.0 g/dL (1.3-4.6) 02/05/24 17:00 TSH 1.34 uIU/mL (0.27-4.20) 02/05/24 17:00 Urine Color Yellow (Yellow) 02/05/24 18:10 Urine Appearance Clear (CLEAR) 02/05/24 18:10 Urine pH 5 (5-7) 02/05/24 18:10 Ur Specific Col[place] 1.025 (1.005-1.030) 02/05/24 18:10 Urine Protein Neg (Negative) 02/05/24 18:10 Urine Glucose (UA) Norm (Normal) 02/05/24 18:10 Urine Ketones Negative (Negative) 02/05/24 18:10 Urine Blood Neg (Negative) 02/05/24 18:10 Urine Nitrate Negative (Negative) 02/05/24 18:10 Urine Bilirubin Neg (Negative) 02/05/24 18:10 Urine Urobilinogen Norm mg/dL (Negative) 02/05/24 18:10 Ur Leukocyte Esterase Negative (Negative) 02/05/24 18:10 All radiology interpretation(s) finalized by discharge Discharge Plan Discharge Patient Disposition: Home Clinical Impression: Generalized weakness Condition: Stable Prescriptions: No Action ropinirole 2 mg tablet 2 mg PO DAILY@1800 Qty: 30 2RF metoprolol tartrate 50 mg tablet 50 mg PO BID@0500,1700 Qty: 60 0RF levothyroxine 100 mcg tablet See Rx Instructions .ROUTE .COMPLEX Qty: 90 0RF Dose Instruction: TAKE ONE TABLET BY MOUTH EVERY MORNING ON AN EMPTY STOMACH Rx Instructions: TAKE ONE TABLET BY MOUTH EVERY MORNING ON AN EMPTY STOMACH bupropion HCl [Wellbutrin XL] 150 mg tablet extended release 24 hr 150 mg PO QAM Qty: 30 3RF amlodipine [Norvasc] 5 mg tablet 5 mg PO DAILY Qty: 30 3RF Klonopin 1 mg tablet 1 mg PO TID Qty: 90 1RF Belsomra 20 mg tablet 20 mg PO .qhs Qty: 30 3RF warfarin 4 mg tablet 4 mg PO DAILY@1330 Qty: 90 0RF albuterol sulfate [ProAir HFA] 90 mcg/actuation HFA aerosol inhaler See Rx Instructions .ROUTE .COMPLEX Qty: 8.5 0RF Dose Instruction: INHALE 2 PUFFS EVERY 4 HOURS BY INHALATION ROUTE FOR 30 DAYS. Rx Instructions: INHALE 2 PUFFS EVERY 4 HOURS BY INHALATION ROUTE FOR 30 DAYS. rosuvastatin 10 mg tablet See Rx Instructions .ROUTE .COMPLEX Qty: 90 0RF Dose Instruction: TAKE ONE TABLET BY MOUTH EVERY DAY Rx Instructions: TAKE ONE TABLET BY MOUTH EVERY DAY Tylenol 325 mg Tablet 325 - 650 mg PO DAILY PRN (Reason: Pain) Claritin 10 mg Tablet 10 mg PO DAILY PRN (Reason: Allergy Symptoms) Discharge Orders: Discharge ED (Routine); Ordered 02/05/24 Ordered By: Ruthy Sher Referrals: Bella Sharma MD [Primary Care Provider] - Activity Restrictions/Additional Instructions: As discussed I would like you to follow-up with your primary care provider soon as possible for further evaluation of your generalized weakness that has been going on over the last several months. Coding Level of Care Code ED Acid Painter for Aura Vasquez
--- NOTE | 2024-02-05 17:45 | XRR_ITS ---
PROCEDURE INFORMATION: Exam: XR Chest Exam date and time: 02/05/2024 7:11 PM Age: 68 years old Clinical indication: Other: Weakness TECHNIQUE: Imaging protocol: Radiologic exam of the chest. Views: 1 view. COMPARISON: CT chest abdpel [id number] 05/09/2021 11:32 AM FINDINGS: Lungs: Unremarkable. No consolidation. Pleural spaces: Unremarkable. No pleural effusion. No pneumothorax. Heart/Mediastinum: Unremarkable. No cardiomegaly. Bones/joints: Unremarkable. XR/XR chest 1V portable [id number] IMPRESSION: No acute findings.
[2024-02-05 17:56] LABS: Basophils # 0.1 10^3/uL (0.0-0.1); Basophils % 0.3 %; Eosinophils # 0.8 10^3/uL (0.0-0.8); Eosinophils % 4.5 %; Lymphocytes # 1.8 10^3/uL (0.8-4.8); Lymphocytes % 10.5 %; Mean Corpuscular HGB Conc 33.6 g/dL (30-55); Mean Corpuscular Hemoglobin 30.6 pg (27-33); Mean Corpuscular Volume 91.1 fl (82-101); Mean Platelet Volume 10.4 fL (7.4-10.4); Monocytes # 1.2 10^3/uL (0.2-0.9); Monocytes % 6.8 %; Neutrophils # 13.38 10^3/uL (1.8-7.7); Neutrophils % 77.6 %; Nucleated Red Blood Cells % 0 %; Platelet Count 379 10^3/cmm (157-399); Red Blood Count 4.61 10^6/uL (3.85-5.65); Red Cell Distribution Width 13.2 % (12.1-15.1); White Blood Count 17.27 10^3/uL (3.29-11.43)
[2024-02-05 18:11] VITALS: BP 111/63; PULSE 78; O2SAT 94
--- NOTE | 2024-02-05 18:11 | ECG_ITS ---
[facility] Test Date: 2024-02-05 Pat Name: Jason Asher Department: Room: Gender: Male Coding Coordinator: : 1955 Requested By: Ruthy Sher Order Number: [id number] Gomez MD: Aisha Talavera M.D. Measurements Intervals [place] Rate: 82 P: 56 MN: 156 QRS: -59 QRSD: 99 T: 3 QT: 363 QTc: 426 Interpretive Statements SINUS RHYTHM LEFT ANTERIOR FASCICULAR BLOCK [QRS AXIS <= -45, QR IN I, RS IN II] Compared to ECG 01/07/2021 19:25:18 Sinus tachycardia no longer present Electronically Signed On 02-06-2024 0:07:26 CDT by Aisha Talavera M.D. [id number]
[2024-02-05 18:30] VITALS: BP 118/61; PULSE 77; O2SAT 98
[2024-02-05 18:32] LABS: Add Urine Microscopic? NO; Charge for UA Resulting for Rev
[2024-02-05 18:32] LABS: INR 1.73 (0.8-1.2)
[2024-02-05 18:38] LABS: Urine Appearance Clear (CLEAR); Urine Color Yellow (Yellow); pH Urine 5 (5-7)
[2024-02-05 18:39] LABS: Bilirubin Urine Neg (Negative); Blood Urine Neg (Negative); Glucose Urine UA Norm (Normal); Ketones Urine Negative (Negative); Leukocyte Esterase Urine Negative (Negative); Nitrate Urine Negative (Negative); Protein Urine Neg (Negative); Specific Gravity, Urine 1.025 (1.005-1.030); Urobilinogen Urine Norm (Negative)
[2024-02-05 18:46] LABS: Alanine Aminotransferase 14 U/L (0-41); Albumin Level 4.4 g/dL (3.5-5.2); Alkaline Phosphatase 75 U/L (40-130); Anion Gap 16.3 (5-19); Aspartate Amino Transferase 19 U/L (0-40); Blood Urea Nitrogen 27 mg/dL (8-23); Calcium 9.4 mg/dL (8.5-10.5); Carbon Dioxide 28 mmol/L (22-29); Chloride 98 mmol/L (98-107); Glomerular Filtration Rate 74.8 mL/min (90-130); Glucose 126 mg/dL (65-115); Osmolality Calculated 293 mOsm/kg (285-295); Potassium 4.3 mmol/L (3.5-5.1); Sodium 138 mmol/L (136-145); Thyroid Stimulating Hormone 1.34 uIU/mL (0.27-4.20); Total Bilirubin 0.4 mg/dL (0.15-1.2); Total Protein 7.4 g/dL (6.6-8.7)
[2024-02-05 19:50] VITALS: BP 130/71; RESP 16; O2SAT 93
== END 2024-02-05 19:56 | disposition home or self-care (01) ==
PROVIDERS: Emergency Provider Physician Assistant; PCP Family Medicine
DX: R53.1 Weakness (principal); Z79.01 Long term (current) use of anticoagulants; Z86.19 Personal history of other infectious and parasitic diseases; I10 Essential (primary) hypertension
CPT/HCPCS: 71045; 80053; 81003; 84443; 85025; 85610; 93005; 99285